=== PATIENT | female | born 1990 | race Caucasian/White ===

== ENCOUNTER 2024-07-26 19:01 | Emergency (ER) | payer MEDICAID ==
[~2024-07-26] VITALS: Ht 160 cm; Wt 60.0 kg
[2024-07-26 19:02] VITALS: O2SAT 99
[2024-07-26 19:13] VITALS: BP 122/70; PULSE 81; RESP 14; TEMP 36.9; O2SAT 99
[2024-07-26] MEDS ORDERED: ACET-2708 MT (21:05)
[2024-07-26] MEDS: ACETAMINOPHEN 325MG TABLET PO ONE (21:26)
== END 2024-07-26 21:31 | disposition home or self-care (01) ==
LOC: ER 19:01
DX: S09.8XXA Other specified injuries of head, initial encounter (principal); R07.81 Pleurodynia; M54.2 Cervicalgia; Y08.89XA Assault by other specified means, initial encounter; Y93.89 Activity, other specified; Y92.89 Other specified places as the place of occurrence of the external cause; Y99.8 Other external cause status
CPT/HCPCS: 26725; 99282; 99283